=== PATIENT | female | born 1975 | race Caucasian/White ===

== ENCOUNTER 2020-08-14 05:30 | Day surgery (SDC) | payer OTHER ==
[2020-08-11 11:47] LABS: ANION GAP 7.3 mmol/L (8-16); CALCIUM 8.9 mg/dL (8.5-10.1); CARBON DIOXIDE 30.4 mmol/L (21.0-32.0); POTASSIUM - SERUM 3.7 mmol/L (3.5-5.1)
[2020-08-11 11:55] LABS: BASOPHILS 0.5 % (0-2); EOSINOPHILS 4.2 % (0-7); HEMATOCRIT 39.9 % (36.0-48.0); HEMOGLOBIN 14.4 g/dL (12-16); IMMATURE GRANULOCYTES 0.6 % (0-5); LYMPHOCYTE ABS# 3.17 10x3/uL (1.18-3.74); MCH 33.4 pg (26.0-34.0); MCHC 36.1 g/dL (31.0-37.0); MCV 92.6 fL (80.0-100.0); MEAN PLATELET VOLUME 9.1 fL (7.4-10.4); MONOCYTES 7.2 % (2-11); NEUTROPHIL ABS# 3.77 10x3/uL (1.56-6.13); NEUTROPHILS 47.5 % (40-80); PLATELET COUNT 231 10x3/uL (130-400); RBC 4.31 10x6/uL (4.00-5.40); RDW 12.5 % (11.5-14.5); WBC 7.9 10x3/uL (4.8-10.8)
[~2020-08-14] VITALS: Ht 157.5 cm; Wt 81.6 kg
--- NOTE | ~2020-08-14 | OP ---
PATIENT NAME: TATI BLACKMON MEDICAL RECORD: [id number] :77 LOCATION:[facility] ADMISSION DATE: SURGEON: NADJA BARBOSA MD DATE OF OPERATION: 08/14/2020 PREOPERATIVE DIAGNOSES: 1. Right knee pain. 2. Osteochondral defect, medial femoral condyle, lateral femoral condyle and patella. POSTOPERATIVE DIAGNOSES: 1. Right knee pain. 2. Osteochondral defect, medial femoral condyle, lateral femoral condyle and patella. PROCEDURE PERFORMED: Right knee scope with chondroplasty and limited synovectomy. INDICATIONS FOR THE PROCEDURE: Ms. Blackmon is a 45-year-old female with history of right knee pain now for the last several years. She has been attempting to deal with this conservatively, but symptoms are getting progressively worse and are limiting her activity. MRI shows evidence of chondral damage throughout the knee. She has elected to proceed with surgery for right knee arthroscopy. Risks, benefits and alternatives of surgery were discussed with the patient and consent was obtained. DESCRIPTION OF PROCEDURE: The patient was met in the holding area where her identity and confirmation of the procedure was performed. The right lower extremity was marked. She was taken to the operating room where she was placed supine on the operating table and anesthesia was administered. A tourniquet was applied to the right thigh and the right leg was positioned in the leg ledezma. Right lower extremity was prepped and draped in a sterile fashion. The patient received preoperative antibiotics and a timeout was performed before initiating the case. On initiation of the case, leg was exsanguinated and the tourniquet was released. Total tourniquet time was 71 minutes. We began with placement of our superior medial portal. I inserted the cannula, filled the knee with fluid. We then placed our anterior lateral portal, inserted the camera and placed our anterior medial portal under direct visualization. Diagnostic knee arthroscopy was performed. There were loose fragments of cartilage throughout the knee. 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 Trochlea was in good condition. The medial femoral condyle demonstrated a 1.5 x 1.5 osteochondral defect along its lateral border at the weightbearing portion. Otherwise, the remaining cartilage and meniscus were in good condition. The ACL was intact. The lateral femoral condyle demonstrated a 1-cm defect along its weightbearing portion centrally. Chondroplasty was performed of these defects to remove any loose fragments. A JAG harvest was then performed along the medial edge of the lateral femoral condyle using curettes. This cartilage will be sent for growth. Before and after images were obtained. The knee was irrigated thoroughly with saline. Our instruments were removed and fluid was drained from the knee. Portal sites were injected with 0.25% Marcaine with epinephrine. These were then closed with nylon suture. A sterile dressing was placed. The patient was turned back over to anesthesia where she was awakened, extubated, and taken to recovery room in stable condition. OPERATIVE REPORT [id number] TATI BLACKMON POSTOPERATIVE PLAN: The patient is going to be returned home with her family today. She may be weightbearing as tolerated on the right lower extremity. Start physical therapy in 2-3 days. We will see her back in clinic in 2 weeks. ANESTHESIA: General. COMPLICATIONS: None. ESTIMATED BLOOD LOSS: 5 mL. TRANSINT:[id number] Voice Confirmation ID: [id number] DOCUMENT ID: [id number] NADJA BARBOSA MD CC: [id number] DICTATION DATE: 08/14/20 1154 UNDERGROUND CONDUIT INSTALLER: 08/14/20 1233 [id number] [place] [address]
[~2020-08-14 05:30] MED LIST: AMBIEN10 MG PO; KLONOPIN1 MG PO; LIPITOR10 MG PO; LISINOPRIL-HCT1 EAC4 PO; PROPRANOLOL HCL60 M1
[2020-08-14 09:09] VITALS: BP 121/70; Ht 157.5 cm; Wt 81.6 kg
--- NOTE | 2020-08-14 14:28 | NUR ---
1255 MEDICATED FOR PAIN TO RIGHT KNEE. [facility] [employer] [facility]I. 1350 IV REMOVED AND PRESSURE HELD. INSTRUCTIONS GIVEN AND PT VOIDED
== END 2020-08-14 14:05 | disposition home or self-care (01) ==
LOC: D.OPS 05:30
PROVIDERS: Anesthesiology; ATTEND Orthopaedic Surgery
DX: M25.561 Pain in right knee (principal); M24.10 Other articular cartilage disorders, unspecified site

== ENCOUNTER 2020-10-09 09:41 | Day surgery (SDC) | payer OTHER ==
[~2020-10-09] VITALS: Ht 157.5 cm; Wt 79.4 kg
[2020-10-09 10:13] LABS: ANION GAP 11.6 mmol/L (8-16); CARBON DIOXIDE 28.1 mmol/L (21.0-32.0); POTASSIUM - SERUM 3.7 mmol/L (3.5-5.1)
[2020-10-09 10:16] LABS: BASOPHILS 0.2 % (0-2); EOSINOPHILS 2.8 % (0-7); HEMATOCRIT 39.9 % (36.0-48.0); HEMOGLOBIN 14.4 g/dL (12-16); IMMATURE GRANULOCYTES 0.3 % (0-5); LYMPHOCYTE ABS# 3.34 10x3/uL (1.18-3.74); LYMPHOCYTES 37.9 % (15-50); MCHC 36.1 g/dL (31.0-37.0); MCV 94.3 fL (80.0-100.0); MEAN PLATELET VOLUME 9.5 fL (7.4-10.4); NEUTROPHILS 48.8 % (40-80); PLATELET COUNT 241 10x3/uL (130-400); RBC 4.23 10x6/uL (4.00-5.40); RDW 12.7 % (11.5-14.5); WBC 8.8 10x3/uL (4.8-10.8)
[2020-10-09 10:27] VITALS: BP 123/86; Ht 157.5 cm; Wt 79.4 kg
--- NOTE | 2020-10-09 16:21 | NUR ---
JAG IMPLANT LOT# [id number] EXP. 10/12/20 PART # [id number]
--- NOTE | 2020-10-09 18:42 | NUR ---
1840 INSTRUCTIONS GIVEN TO PT AND FAMILY IN ROOM. MEDICATED FOR ITCHING. PT STATED SHE WAS ITCHING AFTER THE BLOCK. NO WELPS NOTED
--- NOTE | 2020-10-09 19:19 | NUR ---
1944 IV REMOVED AND PRESSURE HELD. ITCHING EASING SOME. ASSISTED WITH GETTING DRESSED.
--- NOTE | 2020-10-13 07:58 | OP ---
PATIENT NAME: TATI BLACKMON MEDICAL RECORD: [id number] :77 LOCATION:[facility] ADMISSION DATE: SURGEON: NADJA BARBOSA MD DATE OF OPERATION: 10/09/2020 PREOPERATIVE DIAGNOSES: Osteochondral defect right knee, medial femoral condyle, lateral femoral condyle, and lateral facet of the patella. POSTOPERATIVE DIAGNOSES: Osteochondral defect right knee, medial femoral condyle, lateral femoral condyle, and lateral facet of the patella. PROCEDURE PERFORMED: Right knee arthrotomy with autologous chondrocyte implantation (JAG). INDICATIONS FOR THE PROCEDURE: Ms. Blackmon is a 45-year-old female with history of osteochondral defects, right knee. She has been having pain for some time now. We performed knee arthroscopy approximately 8 weeks ago at which time we identified osteochondral defects. The medial femoral condyle, lateral femoral condyle, and lateral facet of the patella. Cartilage harvest was performed for JAG procedure and she returns today for the autologous chondrocyte implantation. Risks, benefits and alternatives of surgery were discussed with the patient and consent was obtained. DESCRIPTION OF PROCEDURE: The patient was met in the holding area where her identity and confirmation of procedure was performed. The right lower extremity was marked. She was taken to the operating room where she was placed supine on the operating table and anesthesia was administered. Tourniquet was applied to the right thigh and the right leg was prepped and draped in a sterile fashion. The patient received preoperative antibiotics and timeout was performed prior to initiating the case. On initiation of the case, leg was exsanguinated and the tourniquet was raised. Total tourniquet time was 123 minutes. A medial parapatellar approach was utilized for exposure. The knee was placed into flexion and we incised through the skin and subcutaneous tissues, dissecting down to the extensor mechanism. The quad tendon was then split along its medial border curving medially around the patella and extending down the medial border of the patellar tendon. We carefully dissected through the posterior tissues into the capsule to avoid any damage to those structures. The capsule was released along the inferior border down to the tibia. We were then able to translate the patella laterally as the knee was brought into flexion and we could then fully visualize the defects of the condyles. Retractors were placed medial and lateral. The lateral femoral condyle was prepared using a 1.5 cm circular tamped cutting guide. This was tamped into the bone and a ring curette was then used to debride the inner areas of damaged cartilage. Once the cartilage was fully debrided, the bone was abraded until we were fully prepared. We then moved to the medial femoral condyle. The medial femoral condyle defect measured approximately 2.5 x 1.5 cm. An oval tamp cutter was used to cut the edges of our defect and a ring curette was then used to debride the damaged cartilage within this area. The defect extended all the way to the lateral aspect of the medial articular surface. The cartilage from these areas were removed with the ring curette and the bone was abraded to complete our preparation. The knee was then taken into extension and the patella was prepared. Patella defect measured approximately 1.5 x 1 cm and was prepared using a ring curette. The edges of the defect were isolated with the curette and then removed until we had good cartilage on all surrounding sides. This was then traced over a piece of suture paper and we were then able to use this to OPERATIVE REPORT [id number] TATI BLACKMON S cut as a template to cut our JAG patch. The patch was prepared using the tamps for the other round and oval pieces. The knee was irrigated thoroughly with saline and all cartilage debris was removed. We then replaced the knee in flexion, placed retractors medial and lateral. The bony beds were dried and a thrombin sponge was used at the medial condyle for a small amount of bleeding. Once these were completely dry, we then placed our fibrin glue and then covered it with our stem cell patch. We performed this laterally, we then placed glue over the top of the patch. We then moved and performed this medially as well. A small 1.0 anchor was also placed at the lateral edge of the medial articular surface to securely fix this portion of the graft to the bone. The suture ends were passed through the graft and the graft was placed down over the defect. Glue was applied over the graft and these were allowed to completely dry. Once these were dry, the knee was placed into extension and the patella was everted. We then had full visualization of the patellar defect at the central portion of the lateral facet. The defect was dried and then the glue was applied. The stem cell patch was applied then covered with glue. We held this in place until the glue was completely dry. We then allowed the patella to return to its neutral position. Knee was irrigated thoroughly with saline. We then began with closure of our wound, closing the extensor mechanism with #1 Vicryl suture. Subcutaneous tissues were irrigated thoroughly with saline and these were closed with 2-0 Vicryl suture. The subcutaneous skin was closed with a running 3-0 Monocryl and the skin was covered with a Prineo Dermabond dressing. A sterile dressing was then applied and covered with an Tremaine wrap. The patient was placed into a hinged knee brace locked in extension. She was turned back over to anesthesia where she was awakened and taken to recovery room in stable condition. POSTOPERATIVE PLAN: The patient is going to return home with her family today. She needs to remain in the knee brace at all times and may be touchdown weightbearing on the right lower extremity. Use crutches with ambulation. She can start with physical therapy next week per JAG protocol. Plan to see her back in clinic in 2 weeks. COMPLICATIONS: None. ESTIMATED BLOOD LOSS: 25 mL. ANESTHESIA: General with peripheral nerve block. TRANSINT:[id number] Voice Confirmation ID: [id number] DOCUMENT ID: [id number] NADJA BARBOSA MD at 0758 CC: [id number] DICTATION DATE: 10/09/20 180 FAGOT MAKER: 10/09/[address] [place] [address] 10/09/20 [id number] [place] [address]
== END 2020-10-09 19:05 | disposition home or self-care (01) ==
LOC: D.OPS 09:41
PROVIDERS: Anesthesiology; ATTEND Orthopaedic Surgery
DX: M25.561 Pain in right knee (principal); M21.961 Unspecified acquired deformity of right lower leg; M24.19 Other articular cartilage disorders, other specified site